=== PATIENT | female | born 1970 | race Hispanic/Latino ===

== ENCOUNTER 2025-08-12 09:35 | Emergency (ER) | payer OTHER ==
[~2025-08-12] VITALS: Ht 162.6 cm; Wt 73.2 kg
[2025-08-12] MEDS ORDERED: ATORVASTATIN CA20 MG PO (09:47)
[2025-08-12] MEDS: KETOROLAC TROMETHAMINE 30 MG/ML VIAL IV STA (10:04)
[2025-08-12] MEDS ORDERED: CYCLOBENZAPRINE5 MG PO (10:56)
[2025-08-12] MEDS ORDERED: KETOROLAC TROME10 MG PO (10:56)
[2025-08-12] MEDS ORDERED: MACROBID 100 M100 MG PO (10:57)
[2025-08-12 11:28] VITALS: PULSE 59; RESP 16; TEMP 97.9; O2SAT 97
== END 2025-08-12 11:28 | disposition home or self-care (01) ==
LOC: FSED 09:39
DX: M54.50 Low back pain, unspecified (principal); N39.0 Urinary tract infection, site not specified; E78.5 Hyperlipidemia, unspecified; K57.90 Diverticulosis of intestine, part unspecified, without perforation or abscess without bleeding; M89.9 Disorder of bone, unspecified
CPT/HCPCS: 74176; 80053; 81003; 85025; 96374; 99284; J1885